=== PATIENT | female | born 1955 | race Caucasian/White ===

== ENCOUNTER 2019-02-04 06:42 | Inpatient (IN) ==
--- NOTE | 2019-02-04 06:57 | Emergency Department Note ---
Disposition Clinical Impression: Abnormal MRI Low back pain Qualifiers: Chronicity: acute Back pain laterality: midline Sciatica presence: without sciatica Qualified Code(s): M54.5 - Low back pain Disposition: Admitted As Inpatient Condition: Undetermined Referrals: Jarret Whitehead MD [Primary Care Provider] - Time of Disposition: 15:34 Abdominal Pain HPI - General Stated Complaint: low back pain/abdominal pain Time Seen by Provider: 02/04/19 06:47 Source: patient, family Mode of arrival: private vehicle Limitations: no limitations Nursing Notes Reviewed: Yes Vital Signs Reviewed: Yes - History of Present Illness HPI Narrative: Patient to ED with for evaluation of low back pain and abdominal pain 4 days. No trauma or heavy lifting, no history of back surgery or procedure. She has had back pain in the past but not like this. She describes it as much more intense and in the middle of her back as opposed to in the muscles. It is worse with movement. Nothing makes it better and it does not radiate. She denies paresthesias or weakness in extremities, loss of bowel or bladder control, dysuria, hematuria, increased urinary frequency or urgency, diarrhea, constipation or vomiting. She has had some nausea. The abdominal pain is di ffuse, nonradiating, intermittent and cramping, moderate in intensity. Nothing makes it better or worse. Pt Subjective Complaint: abdominal pain, other (back pain) Onset (ago): day(s) (4) Treatments prior to arrival: none - Related Data Home Medications Medication Instructions Recorded Confirmed Alprazolam 2.5 mg PO DAILY 03/20/15 02/04/19 BuPROPion 2.5 mg PO DAILY 03/20/15 02/04/19 ClonazePAM 1 each PO DAILY 03/20/15 02/04/19 Evista 60 mg PO DAILY 03/20/15 02/04/19 Lipitor 1 each PO DAILY 03/20/15 02/04/19 Nasal [place] 1 each IN DAILY 03/20/15 02/04/19 Omeprazole 1 each PO DAILY 03/20/15 02/04/19 Sertraline 2.5 mg PO DAILY 03/20/15 02/04/19 Synthroid 25 mg PO DAILY 03/20/15 02/04/19 Budesonide/Formoterol 80/4.5 0 gm IH BIDR 02/04/19 02/04/19 [Symbicort 80/4.5] Previous Rx's Medication Instructions Recorded Guaifenesin [Guaifenesin ER] 600 mg PO BID PRN #20 tab 08/28/17 Allergies Allergy/AdvReac Type Severity Reaction Status Date / Time acetaminophen Allergy See Verified 02/04/19 08:58 [From Tylenol-Codeine] Comments codeine Allergy See Verified 02/04/19 08:58 [From Tylenol-Codeine] Comments Cortisone Allergy See Verified 02/04/19 08:58 Comments NSAIDS (Non-Steroidal Allergy See Verified 02/04/19 08:58 Anti-Inflamma Comments olanzapine [From Zyprexa] Allergy See Verified 02/04/19 08:58 Comments prednisone Allergy See Verified 02/04/19 08:58 Comments Sulfa (Sulfonamide Allergy See Verified 02/04/19 08:58 Antibiotics) Comments tetracycline [Tetracycline] Allergy See Verified 02/04/19 08:58 Comments Zolpidem [From Ambien] AdvReac See Verified 02/04/19 08:58 Comments All systems ED: reviewed and negative except as stated. Review of Systems: As Per HPI Constitutional: Reports: chills. Denies: fever, weakness Eyes: Denies: eye pain, eye discharge, vision change ENT ED: Denies: ear pain, throat pain, congestion, dysphagia Cardiovascular: Denies: chest pain, palpitations, dyspnea on exertion Respiratory: Denies: cough, dyspnea, wheezes Gastrointestinal: Reports: as per HPI, abdominal pain, nausea. Denies: vomiting, diarrhea, constipation, hematemesis, melena, hematochezia Genitourinary: Denies: urgency, dysuria, frequency, hematuria, discharge Musculoskeletal: Reports: as per HPI, back pain. Denies: neck pain, joint swelling, arthralgia, myalgia Integumentary: Denies: rash, lesions, pruritus Neurological: Denies: headache, weakness, numbness, paresthesias, confusion, abnormal gait, vertigo Hematological/Lymphatic: Denies: easy bleeding, easy bruising, lymphadenopathy Allergic/Immunologic: Denies: facial swelling Abdominal Pain PMH - Past Medical History Medical history: Reports: arthritis, cancer, COPD, coronary artery disease, GERD, hyperlipidemia, hypertension, renal disease, thyroid disease, other Female Surgical History: Reports: appendectomy, , cholecystectomy, hysterectomy [employer] history: Reports: endometriosis Psychiatric history: Reports: anxiety, depression - Social History Smoking status: Never smoker Alcohol use: Reports: none Drug use: Reports: none Physical Exam - General Limitations: no limitations General appearance: alert, in no apparent distress - Head Head exam: atraumatic, normocephalic, normal inspection - Eye Eye exam: Present: normal appearance. Absent: scleral icterus, conjunctival injection, periorbital swelling - ENT ENT exam: normal oropharynx, mucous membranes moist - Neck Neck exam: Present: normal inspection, full ROM, trachea midline. Absent: meningismus - Respiratory Respiratory exam: Present: normal lung sounds bilaterally. Absent: respiratory distress, wheezes, stridor - Cardiovascular Cardiovascular exam: Present: regular rate, normal rhythm, normal heart sounds - Abdominal Exam Abdominal exam: Present: soft, tenderness, normal bowel sounds. Absent: distention, guarding, rebound, rigidity, organomegaly, trauma, Chavez's sign, ascites, mass, pulsatile mass - Extremities Exam Extremities exam: Present: normal inspection, full ROM, normal capillary refill. Absent: pedal edema, calf tenderness - Back Exam Back exam: Present: normal inspection, tenderness, paraspinal tenderness, tristin tebral tenderness. Absent: full ROM, CVA tenderness (R), CVA tenderness (L), muscle spasm, rashes, sciatic notch tenderness (R), sciatic notch tenderness (L) - Neurological Exam Neurological exam: Present: alert, oriented X3, CN II-XII intact, reflexes normal. Absent: motor sensory deficit - Psychiatric Psychiatric exam: Present: normal affect, normal mood - Skin Skin exam: Present: warm, dry, intact, normal color Course Course Narrative: Patient examined, IV access obtained, labs and meds ordered. Case discussed with Dr. Krueger. He has had [id number] time with the patient and agrees with the assessment and plan. CT abdomen and pelvis has been ordered. Patient's labs are essentially unremarkable. Pain is significantly improved after [address] of the abdomen and pelvis was read by the radiologist as abnormal injection of the fat adjacent to the L2-L3 vertebrae and disc space in the retroperitoneum. MRI recommended. MRI read by the radiologist as findings concerning for atypical spine infection, possibly including tuberculosis spondylitis. Case discussed with the hospitalist. He recommends holding the antibiotics for now. Patient has been accepted for admission. - Consultations Consultation #1: Case discussed with Dr. Steel. He states that this could represent discitis, although with no fever or leukocytosis, it would be less likely. MRI would further differentiate this. Time: 09:20 Consultation #2: Dr. Alcantar consulted again. He recommends consulting Infectious Disease and working patient up for TB. This was discussed with Dr. Krueger who recommends broad spectrum ABX and admission. Time: 15:06 Vital Signs Temperature 98.2 F 02/04/19 07:19 Pulse Rate 57 02/04/19 07:19 Respiratory Rate 16 02/04/19 07:19 Blood Pressure 100/70 02/04/19 07:19 O2 Sat by Pulse Oximetry 94 02/04/19 07:19 Temperature 98.2 F 02/04/19 07:19 Pulse Rate 64 02/04/19 14:15 Respiratory Rate 16 02/04/19 14:15 Blood Pressure 111/71 02/04/19 14:15 O2 Sat by Pulse Oximetry 96 02/04/19 14:15 Oxygen Delivery Oxygen Delivery Room Air Abdominal Pain - Medical Records Medical records reviewed: Yes I reviewed the patient's medical records. - Lab Data Lab results reviewed: Yes I reviewed the patient's lab results. Lab results narrative: Laboratory Last Values WBC 6.6 K/mcL (4.3-11.1) 02/04/19 07:40 RBC 4.10 M/mcL (3.82-4.97) 02/04/19 07:40 Hgb 11.9 g/dL (11.5-15.4) 02/04/19 07:40 Hct 35.9 % (35.3-44.9) 02/04/19 07:40 MCV 87.6 fL (83.0-100.0) 02/04/19 07:40 MCH 29.0 pg (28.0-33.3) 02/04/19 07:40 MCHC 33.1 g/dL (31.6-35.5) 02/04/19 07:40 RDW 12.4 % (11.5-14.5) 02/04/19 07:40 Plt Count 213 K/mcL (140-400) 02/04/19 07:40 MPV 10.1 fL (9.4-12.4) 02/04/19 07:40 Immature Gran % 0.3 % (0-4) 02/04/19 07:40 Seg Neutrophils % 56.1 % 02/04/19 07:40 Lymphocytes % 30.7 % 02/04/19 07:40 Monocytes % 9.1 % 02/04/19 07:40 Eosinophils % 3.3 % 02/04/19 07:40 Basophils % 0.5 % 02/04/19 07:40 Neutrophils # 3.7 K/mcL (1.6-8.9) 02/04/19 07:40 Lymphocytes # 2.0 K/mcL (0.6-4.6) 02/04/19 07:40 Monocytes # 0.6 K/mcL (0.0-1.3) 02/04/19 07:40 Eosinophils # 0.2 K/mcL (0.0-0.6) 02/04/19 07:40 Basophils # 0.0 K/mcL (0.0-0.2) 02/04/19 07:40 Sodium 141 mEq/L (136-145) 02/04/19 07:40 Potassium 3.6 mEq/L (3.5-5.1) 02/04/19 07:40 Chloride 104 mEq/L (98-107) 02/04/19 07:40 Carbon Dioxide 28 mEq/L (23-29) 02/04/19 07:40 BUN 9 mg/dL (8-23) 02/04/19 07:40 Creatinine 0.96 mg/dL (0.60-1.20) 02/04/19 07:40 Est GFR ( Amer) > 60 (> 60) 02/04/19 07:40 Est GFR (Non-Af Amer) 58 (> 60) L 02/04/19 07:40 BUN/Creatinine Ratio 9 (6-26) 02/04/19 07:40 Glucose 130 mg/dL (70-105) H 02/04/19 07:40 Calculated Osmolality 292 (280-300) 02/04/19 07:40 Lactic Acid 0.5 mmol/L (0.5-2.2) 02/04/19 08:53 Calcium 8.9 mg/dL (8.6-10.3) 02/04/19 07:40 Total Bilirubin 0.2 mg/dL (0.3-1.0) L 02/04/19 07:40 Direct Bilirubin 0.1 mg/dL (0.0-0.2) 02/04/19 07:40 Indirect Bilirubin 0.1 mg/dL (0.0-1.2) 02/04/19 07:40 AST 19 Units/L (13-39) 02/04/19 07:40 ALT 14 Units/L (7-52) 02/04/19 07:40 Alkaline Phosphatase 40 Units/L (34-104) 02/04/19 07:40 Serum Total Protein 6.6 g/dL (6.4-8.9) 02/04/19 07:40 Albumin 3.8 g/dL (3.5-5.7) 02/04/19 07:40 Globulin 2.8 g/dL (2.4-3.5) 02/04/19 07:40 Albumin/Globulin Ratio 1.4 (1.1-2.2) 02/04/19 07:40 Lipase 43 Units/L (11-82) 02/04/19 07:40 Urine Color Yellow (Yellow) 02/04/19 07:47 Urine Clarity Clear (Clear) 02/04/19 07:47 Urine pH 6.0 pH Units (5.0-8.0) 02/04/19 07:47 Ur Specific [place] 1.008 (1.010-1.025) L 02/04/19 07:47 Urine Protein Negative mg/dL (Neg-Trace) 02/04/19 07:47 Urine Glucose (UA) Normal mg/dL (Normal) 02/04/19 07:47 Urine Ketones Negative mg/dL (Negative) 02/04/19 07:47 Urine Blood Negative (Negative) 02/04/19 07:47 Urine Nitrite Negative (Negative) 02/04/19 07:47 Urine Bilirubin Negative (Negative) 02/04/19 07:47 Urine Urobilinogen Normal mg/dL (Normal) 02/04/19 07:47 Ur Leukocyte Esterase Large (Negative) H 02/04/19 07:47 Urine Microscopic RBC 0-3 per hpf (0-3) 02/04/19 07:47 Urine Microscopic WBC 15-30 per hpf (0-3) H 02/04/19 07:47 Ur Squamous Epith Cells Many per lpf (None-Few) H 02/04/19 07:47 Urine Bacteria None Seen per hpf (None-Few) 02/04/19 07:47 Hyaline Casts None Seen per lpf (None-Few) 02/04/19 07:47 Ur Culture Indicated? YES (NO) A 02/04/19 07:47 Result diagrams: 02/04/19 07:40 02/04/19 07:40 Lab Results 02/04/19 02/04/19 02/04/19 Range/Units 07:40 07:40 07:47 WBC 6.6 (4.3-11.1) K/mcL RBC 4.10 (3.82-4.97) M/mcL Hgb 11.9 (11.5-15.4) g/dL Hct 35.9 (35.3-44.9) % MCV 87.6 (83.0-100.0) fL MCH 29.0 (28.0-33.3) pg MCHC 33.1 (31.6-35.5) g/dL RDW 12.4 (11.5-14.5) % Plt Count 213 (140-400) K/mcL MPV 10.1 (9.4-12.4) fL Immature Gran % 0.3 (0-4) % Seg Neutrophils % 56.1 % Lymphocytes % 30.7 % Monocytes % 9.1 % Eosinophils % 3.3 % Basophils % 0.5 % Neutrophils # 3.7 (1.6-8.9) K/mcL Lymphocytes # 2.0 (0.6-4.6) K/mcL Monocytes # 0.6 (0.0-1.3) K/mcL Eosinophils # 0.2 (0.0-0.6) K/mcL Basophils # 0.0 (0.0-0.2) K/mcL Sodium 141 (136-145) mEq/L Potassium 3.6 (3.5-5.1) mEq/L Chloride 104 (98-107) mEq/L Carbon Dioxide 28 (23-29) mEq/L BUN 9 (8-23) mg/dL Creatinine 0.96 (0.60-1.20) mg/dL Est GFR ( Amer) > 60 (> 60) Est GFR (Non-Af Amer) 58 L (> 60) BUN/Creatinine Ratio 9 (6-26) Glucose 130 H (70-105) mg/dL Calculated Osmolality 292 (280-300) Lactic Acid (0.5-2.2) mmol/L Calcium 8.9 (8.6-10.3) mg/dL Total Bilirubin 0.2 L (0.3-1.0) mg/dL Direct Bilirubin 0.1 (0.0-0.2) mg/dL Indirect Bilirubin 0.1 (0.0-1.2) mg/dL AST 19 (13-39) Units/L ALT 14 (7-52) Units/L Alkaline Phosphatase 40 (34-104) Units/L Serum Total Protein 6.6 (6.4-8.9) g/dL Albumin 3.8 (3.5-5.7) g/dL Globulin 2.8 (2.4-3.5) g/dL Albumin/Globulin Ratio 1.4 (1.1-2.2) Lipase 43 (11-82) Units/L Urine Color Yellow (Yellow) Urine Clarity Clear (Clear) Urine pH 6.0 (5.0-8.0) pH Units Ur Specific [place] 1.008 L (1.010-1.025) Urine Protein Negative (Neg-Trace) mg/dL Urine Glucose (UA) Normal (Normal) mg/dL Urine Ketones Negative (Negative) mg/dL Urine Blood Negative (Negative) Urine Nitrite Negative (Negative) Urine Bilirubin Negative (Negative) Urine Urobilinogen Normal (Normal) mg/dL Ur Leukocyte Esterase Large H (Negative) Urine Microscopic RBC 0-3 (0-3) per hpf Urine Microscopic WBC 15-30 H (0-3) per hpf Ur Squamous Epith Cells Many H (None-Few) per lpf Urine Bacteria None Seen (None-Few) per hpf Hyaline Casts None Seen (None-Few) per lpf Ur Culture Indicated? YES A (NO) 02/04/19 Range/Units 08:53 WBC (4.3-11.1) K/mcL RBC (3.82-4.97) M/mcL Hgb (11.5-15.4) g/dL Hct (35.3-44.9) % MCV (83.0-100.0) fL MCH (28.0-33.3) pg MCHC (31.6-35.5) g/dL RDW (11.5-14.5) % Plt Count (140-400) K/mcL MPV (9.4-12.4) fL Immature Gran % (0-4) % Seg Neutrophils % % Lymphocytes % % Monocytes % % Eosinophils % % Basophils % % Neutrophils # (1.6-8.9) K/mcL Lymphocytes # (0.6-4.6) K/mcL Monocytes # (0.0-1.3) K/mcL Eosinophils # (0.0-0.6) K/mcL Basophils # (0.0-0.2) K/mcL Sodium (136-145) mEq/L Potassium (3.5-5.1) mEq/L Chloride (98-107) mEq/L Carbon Dioxide (23-29) mEq/L BUN (8-23) mg/dL Creatinine (0.60-1.20) mg/dL Est GFR ( Amer) (> 60) Est GFR (Non-Af Amer) (> 60) BUN/Creatinine Ratio (6-26) Glucose (70-105) mg/dL Calculated Osmolality (280-300) Lactic Acid 0.5 (0.5-2.2) mmol/L Calcium (8.6-10.3) mg/dL Total Bilirubin (0.3-1.0) mg/dL Direct Bilirubin (0.0-0.2) mg/dL Indirect Bilirubin (0.0-1.2) mg/dL AST (13-39) Units/L ALT (7-52) Units/L Alkaline Phosphatase (34-104) Units/L Serum Total Protein (6.4-8.9) g/dL Albumin (3.5-5.7) g/dL Globulin (2.4-3.5) g/dL Albumin/Globulin Ratio (1.1-2.2) Lipase (11-82) Units/L Urine Color (Yellow) Urine Clarity (Clear) Urine pH (5.0-8.0) pH Units Ur Specific [place] (1.010-1.025) Urine Protein (Neg-Trace) mg/dL Urine Glucose (UA) (Normal) mg/dL Urine Ketones (Negative) mg/dL Urine Blood (Negative) Urine Nitrite (Negative) Urine Bilirubin (Negative) Urine Urobilinogen (Normal) mg/dL Ur Leukocyte Esterase (Negative) Urine Microscopic RBC (0-3) per hpf Urine Microscopic WBC (0-3) per hpf Ur Squamous Epith Cells (None-Few) per lpf Urine Bacteria (None-Few) per hpf Hyaline Casts (None-Few) per lpf Ur Culture Indicated? (NO) - Radiology Data Radiology results reviewed: Yes I reviewed the patient's radiology results. Laboratory Last Values WBC 6.6 K/mcL (4.3-11.1) 02/04/19 07:40 RBC 4.10 M/mcL (3.82-4.97) 02/04/19 07:40 Hgb 11.9 g/dL (11.5-15.4) 02/04/19 07:40 Hct 35.9 % (35.3-44.9) 02/04/19 07:40 MCV 87.6 fL (83.0-100.0) 02/04/19 07:40 MCH 29.0 pg (28.0-33.3) 02/04/19 07:40 MCHC 33.1 g/dL (31.6-35.5) 02/04/19 07:40 RDW 12.4 % (11.5-14.5) 02/04/19 07:40 Plt Count 213 K/mcL (140-400) 02/04/19 07:40 MPV 10.1 fL (9.4-12.4) 02/04/19 07:40 Immature Gran % 0.3 % (0-4) 02/04/19 07:40 Seg Neutrophils % 56.1 % 02/04/19 07:40 Lymphocytes % 30.7 % 02/04/19 07:40 Monocytes % 9.1 % 02/04/19 07:40 Eosinophils % 3.3 % 02/04/19 07:40 Basophils % 0.5 % 02/04/19 07:40 Neutrophils # 3.7 K/mcL (1.6-8.9) 02/04/19 07:40 Lymphocytes # 2.0 K/mcL (0.6-4.6) 02/04/19 07:40 Monocytes # 0.6 K/mcL (0.0-1.3) 02/04/19 07:40 Eosinophils # 0.2 K/mcL (0.0-0.6) 02/04/19 07:40 Basophils # 0.0 K/mcL (0.0-0.2) 02/04/19 07:40 Sodium 141 mEq/L (136-145) 02/04/19 07:40 Potassium 3.6 mEq/L (3.5-5.1) 02/04/19 07:40 Chloride 104 mEq/L (98-107) 02/04/19 07:40 Carbon Dioxide 28 mEq/L (23-29) 02/04/19 07:40 BUN 9 mg/dL (8-23) 02/04/19 07:40 Creatinine 0.96 mg/dL (0.60-1.20) 02/04/19 07:40 Est GFR ( Amer) > 60 (> 60) 02/04/19 07:40 Est GFR (Non-Af Amer) 58 (> 60) L 02/04/19 07:40 BUN/Creatinine Ratio 9 (6-26) 02/04/19 07:40 Glucose 130 mg/dL (70-105) H 02/04/19 07:40 Calculated Osmolality 292 (280-300) 02/04/19 07:40 Lactic Acid 0.5 mmol/L (0.5-2.2) 02/04/19 08:53 Calcium 8.9 mg/dL (8.6-10.3) 02/04/19 07:40 Total Bilirubin 0.2 mg/dL (0.3-1.0) L 02/04/19 07:40 Direct Bilirubin 0.1 mg/dL (0.0-0.2) 02/04/19 07:40 Indirect Bilirubin 0.1 mg/dL (0.0-1.2) 02/04/19 07:40 AST 19 Units/L (13-39) 02/04/19 07:40 ALT 14 Units/L (7-52) 02/04/19 07:40 Alkaline Phosphatase 40 Units/L (34-104) 02/04/19 07:40 Serum Total Protein 6.6 g/dL (6.4-8.9) 02/04/19 07:40 Albumin 3.8 g/dL (3.5-5.7) 02/04/19 07:40 Globulin 2.8 g/dL (2.4-3.5) 02/04/19 07:40 Albumin/Globulin Ratio 1.4 (1.1-2.2) 02/04/19 07:40 Lipase 43 Units/L (11-82) 02/04/19 07:40 Urine Color Yellow (Yellow) 02/04/19 07:47 Urine Clarity Clear (Clear) 02/04/19 07:47 Urine pH 6.0 pH Units (5.0-8.0) 02/04/19 07:47 Ur Specific [place] 1.008 (1.010-1.025) L 02/04/19 07:47 Urine Protein Negative mg/dL (Neg-Trace) 02/04/19 07:47 Urine Glucose (UA) Normal mg/dL (Normal) 02/04/19 07:47 Urine Ketones Negative mg/dL (Negative) 02/04/19 07:47 Urine Blood Negative (Negative) 02/04/19 07:47 Urine Nitrite Negative (Negative) 02/04/19 07:47 Urine Bilirubin Negative (Negative) 02/04/19 07:47 Urine Urobilinogen Normal mg/dL (Normal) 02/04/19 07:47 Ur Leukocyte Esterase Large (Negative) H 02/04/19 07:47 Urine Microscopic RBC 0-3 per hpf (0-3) 02/04/19 07:47 Urine Microscopic WBC 15-30 per hpf (0-3) H 02/04/19 07:47 Ur Squamous Epith Cells Many per lpf (None-Few) H 02/04/19 07:47 Urine Bacteria None Seen per hpf (None-Few) 02/04/19 07:47 Hyaline Casts None Seen per lpf (None-Few) 02/04/19 07:47 Ur Culture Indicated? YES (NO) A 02/04/19 07:47 Attestation Statement - Attestation Attestation: Dr. Krueger note: Patient seen in conjunction with emergency medicine physician reading assistant Shaniqua Dean. Please see her charting for complete documentation. Assessment [id number] time with the patient and I agree with patient's treatment and disposition. Vague low back pain progressed to abdominal pain over the last 4 days without injury. No acute lower extremity weakness. CT scan and MRI abnormalities is noted. Possible infectious cause although there is no fever or white count. Will be admitted on antibiotics and further evaluation will be clinically determined by in patient and reimbursement consultant if further continued antibiotics or any surgical intervention would be necessary. Patient has no acute neurologic findings and stable vital signs with improved condition upon admission.
[2019-02-04] MEDS ORDERED: Ondansetron 4 MG/2 ML VIAL IVP ONE (07:02)
[2019-02-04] MEDS ORDERED: *HR* HYDROmorphone (PF) 1 MG/ML SYRINGE IVP ONE (07:02)
[2019-02-04] MEDS ORDERED: 0.9 % Sodium Chloride 1,000 ML IVC ONE (07:02)
[2019-02-04] MEDS ORDERED: *HR* FentaNYL (PF) 100 MCG/2 ML VIAL IVP ONE ×2 (07:53→14:53)
[2019-02-04 07:56] LABS: Basophils % 0.5 %; Eosinophils # 0.2 K/mcL (0.0-0.6); Eosinophils % 3.3 %; Hematocrit 35.9 % (35.3-44.9); Hemoglobin 11.9 g/dL (11.5-15.4); Immature Granulocytes % 0.3 % (0-4); Lymphocytes % 30.7 %; Mean Corpuscular HGB Conc 33.1 g/dL (31.6-35.5); Mean Corpuscular Volume 87.6 fL (83.0-100.0); Mean Platelet Volume 10.1 fL (9.4-12.4); Monocytes # 0.6 K/mcL (0.0-1.3); Monocytes % 9.1 %; Neutrophils # 3.7 K/mcL (1.6-8.9); Platelet Count 213 K/mcL (140-400); Red Cell Distribution Width 12.4 % (11.5-14.5); Segmented Neutrophils % 56.1 %; White Blood Count 6.6 K/mcL (4.3-11.1)
[2019-02-04 07:59] LABS: Bilirubin,Urine Negative (Negative); Blood,Urine Negative (Negative); Clarity,Urine Clear (Clear); Color,Urine Yellow (Yellow); Glucose,Urine (UA) Normal (Normal); Ketones,Urine Negative (Negative); Leukocyte Esterase,Urine Large (Negative); Nitrite,Urine Negative (Negative); Protein,Urine Negative (Neg-Trace); Specific Gravity,Urine 1.008 (1.010-1.025); Urobilinogen,Urine Normal (Normal)
[2019-02-04 08:00] LABS: Bacteria,Urine None Seen per hpf (None-Few); Hyaline Casts,Urine None Seen per lpf (None-Few); RBC,Urine 0-3 per hpf (0-3); Squamous Epithelial Cell,Urine Many per lpf (None-Few); WBC,Urine 15-30 per hpf (0-3)
[2019-02-04 08:14] LABS: Alanine Aminotransferase 14 Units/L (7-52); Albumin 3.8 g/dL (3.5-5.7); Albumin/Globulin Ratio 1.4 (1.1-2.2); Alkaline Phosphatase 40 Units/L (34-104); Aspartate Amino Transferase 19 Units/L (13-39); BUN/Creatinine Ratio 9 (6-26); Bilirubin,Direct 0.1 mg/dL (0.0-0.2); Bilirubin,Indirect 0.1 mg/dL (0.0-1.2); Bilirubin,Total 0.2 mg/dL (0.3-1.0); Blood Urea Nitrogen 9 mg/dL (8-23); Calcium 8.9 mg/dL (8.6-10.3); Carbon Dioxide 28 mEq/L (23-29); Chloride 104 mEq/L (98-107); Globulin 2.8 g/dL (2.4-3.5); Glucose 130 mg/dL (70-105); Lipase 43 Units/L (11-82); Osmolality,Calculated 292 (280-300); Potassium 3.6 mEq/L (3.5-5.1); Sodium 141 mEq/L (136-145); Total Protein 6.6 g/dL (6.4-8.9); eGFR For African Americans > 60 (> 60); eGFR For Non-African Americans 58 (> 60)
[2019-02-04] MEDS ORDERED: Gadolinium Contrast Agent (WT Based) IV PRN (09:20)
[2019-02-04] MEDS ORDERED: Acetaminophen 325 MG TABLET PO PRN (16:29)
[2019-02-04] MEDS ORDERED: Naloxone 0.4 MG/ML INJ IVP PRN (16:29)
--- NOTE | 2019-02-04 16:54 | Internal Med History&Physical ---
Date of Encounter: 02/04/19 Time of Encounter: 16:52 Internal Medicine - H&P: HPI Chief complaint: Back pain Admitted From: Emergency Dept Plans for Post Hospital Care: Home History of present illness: Ms. Forbes is a 63 year old female with history of hypothyroidism, GERD, depression, arthritis who presents with low back pain that has worsened for the last 4-5 days and his present her from proper sleep. She says it is worse when she bends forward. She has had chronic back pain for many years which has limited her ability she walks with a limp. She also has had bilateral hip pain for many years. She denies any numbness or tingling. No urinary or bowel incontinence. When she came to the ED she had a laboratory workup that was mostly unremarkable. Was noted to have glucose of 130. She had a CT of the ab domen and pelvis that showed an abnormal ejection anterior to the L2 vertebral body extending to the L2-L3 disc space. An MRI was recommended which was done and showed similar findings. There is edema/enhancement noted. There was a mention of possible atypical spine infection, such as tuberculosis spondylitis. Dr. Steel was contacted and recommended admission and consult ID as well. She has not had any recent sickness or travel. No risk factors for TB. Patient denies any fever, chills, recent travel, headache, nausea, vomiting, chest pain, shortness breath, abdominal pain, diarrhea, constipation, urinary symptoms, or neurological symptoms. Past Med Surg Social Fam HX - Past Medical History Medical history: arthritis, cancer, COPD, coronary artery disease, fibromyalgia, GERD, hyperlipidemia, hypertension, renal disease, thyroid disease, other Additional medical history: sleep apnea - restless leg syndrome - vit D Deficiency Psychiatric history: anxiety, depression - Past Surgical History Surgical History: appendectomy, cholecystectomy, hysterectomy Additional surgical history: colonoscopy - back surgery - left hand surgery - bilateral CTR - bilateral Knee surgery - Social History Smoking Status: Never smoker Smokeless Tobacco Status: No Alcohol use: none Drug use: none Internal Medicine - H&P: Meds Alprazolam 2.5 mg PO DAILY 03/20/15 [History] BuPROPion 2.5 mg PO DAILY 03/20/15 [History] ClonazePAM 1 each PO DAILY 03/20/15 [History] Evista 60 mg PO DAILY 03/20/15 [History] Lipitor 1 each PO DAILY 03/20/15 [History] Nasal Warden 1 each IN DAILY 03/20/15 [History] Omeprazole 1 each PO DAILY 03/20/15 [History] Sertraline 2.5 mg PO DAILY 03/20/15 [History] Synthroid 25 mg PO DAILY 03/20/15 [History] Guaifenesin [Guaifenesin ER] 600 mg PO BID PRN #20 tab 08/28/17 [Rx] Budesonide/Formoterol 80/4.5 [Symbicort 80/4.5] 0 gm IH BIDR 02/04/19 [History] Allergy/AdvReac Type Severity Reaction Status Date / Time acetaminophen Allergy See Verified 02/04/19 08:58 [From Tylenol-Codeine] Comments codeine Allergy See Verified 02/04/19 08:58 [From Tylenol-Codeine] Comments Cortisone Allergy See Verified 02/04/19 08:58 Comments NSAIDS (Non-Steroidal Allergy See Verified 02/04/19 08:58 Anti-Inflamma Comments olanzapine [From Zyprexa] Allergy See Verified 02/04/19 08:58 Comments prednisone Allergy See Verified 02/04/19 08:58 Comments Sulfa (Sulfonamide Allergy See Verified 02/04/19 08:58 Antibiotics) Comments tetracycline [Tetracycline] Allergy See Verified 02/04/19 08:58 Comments Zolpidem [From Ambien] AdvReac See Verified 02/04/19 08:58 Comments All Systems PM: A 10-system review of systems was performed and is negative for pertinent findings except as documented above in the HPI. Review of systems: All systems reviewed are negative except for as mentioned above - Constitutional Vitals: Temp Pulse Resp BP Pulse Ox 98.2 F 60 16 99/57 95 02/04/19 07:19 02/04/19 16:02 02/04/19 14:55 02/04/19 16:02 02/04/19 16:02 Exam: GEN: NAD HEENT: AT, NC, No cyanosis, oral mucosa is moist, No JVD Lymphatics: No lymphadenoapthy Eyes: Extrocular muscles intact, anicteric CVS:RRR. S1, S2, No m/r/g RESP: CTAB ABD: Soft, NT, ND, +BS EXT: No edema, No rashes, 2+ DP. Lower back tenderness with no deformities. NEURO: Nonfocal, CN II-XII intact, No focal motor or sensory deficits Psych: Cooperative, Not anxious or depressed Internal Med - H&P Results - Labs CBC & Chem 7: 02/04/19 07:40 02/04/19 07:40 Labs: Short CBC 02/04/19 Range/Units 07:40 WBC 6.6 (4.3-11.1) K/mcL Hgb 11.9 (11.5-15.4) g/dL Hct 35.9 (35.3-44.9) % Plt Count 213 (140-400) K/mcL Neutrophils # 3.7 (1.6-8.9) K/mcL BMP 02/04/19 07:40 Sodium 141 Potassium 3.6 Chloride 104 Carbon Dioxide 28 BUN 9 Creatinine 0.96 Glucose 130 H Calcium 8.9 Liver Function 02/04/19 Range/Units 07:40 Total Bilirubin 0.2 L (0.3-1.0) mg/dL Direct Bilirubin 0.1 (0.0-0.2) mg/dL AST 19 (13-39) Units/L ALT 14 (7-52) Units/L Alkaline Phosphatase 40 (34-104) Units/L Albumin 3.8 (3.5-5.7) g/dL Urine 02/04/19 Range/Units 07:47 Urine Color Yellow (Yellow) Urine Clarity Clear (Clear) Urine pH 6.0 (5.0-8.0) pH Units Ur Specific [place] 1.008 L (1.010-1.025) Urine Protein Negative (Neg-Trace) mg/dL Urine Glucose (UA) Normal (Normal) mg/dL - Impressions ITS Impressions Abdomen/Pelvis CT 02/04/19 07:04 IMPRESSION: Abnormal injection of the fat the retroperitoneum anterior to the L2 vertebral body, extending to the L2-L3 disc space. This could conceivably be the cause of the patient's pain. Exact cause is uncertain. It may relate to an early finding of retroperitoneal fibrosis. Infectious-inflammatory change could also have this appearance. It could be reactive and related to disc disease. Consider lumbar spine MRI with and without IV contrast for further characterization No stones or hydronephrosis. D/ / Sky Carter MD / Sky Carter MD Interpreting Provider: Sky Carter MD Lumbar Spine MRI 02/04/19 09:20 IMPRESSION: Abnormal enhancement of the anterior longitudinal ligament, most pronounced at the L3 vertebral body level. Additional anterior perivertebral edema/enhancement is noted. These findings may sub ligamentous spread of an atypical spine infection, such as tuberculosis spondylitis. There is no imaging finding to suggest discitis or osteomyelitis at this time. No evidence of an abscess. RECOMMENDATIONS: Consider short interval follow-up imaging. D/ / Farooq Castorena MD / Farooq Castorena MD Interpreting Provider: Farooq Castorena MD - Assessment and Plan (1) Low back pain Current Visit: Yes Status: Acute Assessment and plan: Admit for pain control. Consult Dr. Steel and consult infectious disease. Possible discitis. There was a mention of possible atypical spine infection such as tuberculosis spondylitis. No risk factors for TB. IV vancomycin/zosyn for now. f/u on blood cultures. Check ESR/CRP Qualifiers: Chronicity: acute Back pain laterality: midline Sciatica presence: without sciatica Qualified Code(s): M54.5 - Low back pain (2) Abnormal MRI Current Visit: Yes Status: Acute Assessment and plan: As above (3) Hypothyroidism Current Visit: Yes Status: Acute Assessment and plan: c/w home meds Qualifiers: Hypothyroidism type: unspecified Qualified Code(s): E03.9 - Hypothyroidism, unspecified (4) Depression Current Visit: Yes Status: Acute Assessment and plan: c/w home meds Qualifiers: Depression Type: unspecified Qualified Code(s): F32.9 - Major depressive disorder, single episode, unspecified (5) GERD (gastroesophageal reflux disease) Current Visit: Yes Status: Acute Assessment and plan: c/w home PPI Qualifiers: Esophagitis presence: without esophagitis Qualified Code(s): K21.9 - Gastro-esophageal reflux disease without esophagitis (6) HLD (hyperlipidemia) Current Visit: Yes Status: Acute Assessment and plan: c/w home Lipitor Qualifiers: Hyperlipidemia type: unspecified Qualified Code(s): E78.5 - Hyperlipidemia, unspecified (7) DVT prophylaxis Current Visit: Yes Status: Acute Assessment and plan: heparin SQ - Time Spent With Patient Total time spent is greater than 50% in coordination of care (as documented) at patient's floor/unit and/or counseling patient:
[2019-02-04] MEDS ORDERED: Vancomycin 500 MG in 0.9 % Sodium Chloride Mini Bag 100 ML IVPB ONE (20:00)
[2019-02-04] MEDS: *HR* HYDROcodone/Acet 5/325 mg TABLET PO PRN ×2 (20:38→23:03)
[2019-02-04] MEDS: Piperacillin/Tazobactam 3.375 GM in 0.9 % Sodium Chloride Mini Bag 100 ML IVPB SCH (20:41)
[2019-02-04] MEDS: Budesonide/Formoterol 80/4.5 MDI IH SCH (21:04)
[2019-02-04] MEDS: *HR* Heparin 5,000 UNIT/ML VIAL SQ SCH (22:07)
[2019-02-04] MEDS: *HR* HYDROmorphone (PF) 1 MG/ML SYRINGE IVP PRN (22:20)
[2019-02-04] MEDS: ALPRAZolam 1 MG TABLET PO PRN (22:20)
[2019-02-05] MEDS: *HR* HYDROmorphone (PF) 1 MG/ML SYRINGE IVP PRN ×4 (03:37→22:04)
[2019-02-05] MEDS: Piperacillin/Tazobactam 3.375 GM in 0.9 % Sodium Chloride Mini Bag 100 ML IVPB SCH ×2 (03:57→11:43)
[2019-02-05] MEDS: Levothyroxine 25 MCG TABLET PO SCH (05:45)
[2019-02-05] MEDS: *HR* Heparin 5,000 UNIT/ML VIAL SQ SCH ×3 (05:45→21:49)
[2019-02-05] MEDS: *HR* HYDROcodone/Acet 5/325 mg TABLET PO PRN ×2 (07:14→14:01)
[2019-02-05] MEDS: Budesonide/Formoterol 80/4.5 MDI IH SCH ×2 (07:37→21:54)
--- NOTE | 2019-02-05 08:11 | Infectious Disease Consult ---
Infectious Disease-Consult - Encounter Date/Time Date of Encounter: 02/05/19 - Data of Consult Patient: new to practice Reason for consult: discitis. rule out tuberculous spondylitis Consult date: 02/05/19 Requesting Physician: Valery Prather MD Primary Care Provider: Jarret Whitehead MD - [facility] HPI: Ms. Forbes is a 63-year-old female with a past medical history of COPD, CAD, GERD, hyperlipidemia, hypertension, chronic kidney disease, hypothyroidism anxiety, and depression. The patient was admitted to the hospital 01/25/19 for an abnormal back MRI and low back pain. We are consulted 01/26/19 for further workup and treatment recommendations for "discitis and rule out tuberculous spondylitis." Briefly, the patient is a 63-year-old female with past medical history as stated above. The patient presented to the emergency department on the day of admission with complaints of a 4 day history of low back pain and abdominal pain. Upon arrival, the patient was afebrile hemodynamically stable. Lab workup revealed a normal white blood cell count and renal function. ESR was mildly elevated at 22 with a CRP of 9. LFTs and lipase were normal. Urinalysis was positive for 15-30 white cells and large amounts of leukocyte esterase as well as many epithelial cells. She had a CT of the abdomen and pelvis without contrast that showed abnormal injection of the fat of the retroperitoneum anterior to the L2 vertebral body extending to the L2-L3 disc space. This could conceivably be the cause of the patient's pain, but the exact cause is uncertain. It may relate to an early finding of retroperitoneal fibrosis, but infectious/inflammatory change could also have this appearance. It could be reactive related to disc disease. A lumbar spine MRI was recommended. The patient had an MRI of the lumbar spine that showed abnormal enhancement of the anterior longitudinal ligament, most pronounced at the L3 vertebral body. Additional anterior perivertebral edema/enhancement was noted. These findings may ligamentous spread of an atypical spine infection, such as tuberculosis spondylitis. There was no imaging finding to suggest discitis or osteomyelitis and no evidence of abscess. Blood cultures were obtained 2 sets are pending. Urine cultures pending as well. She was started empirically on IV antibiotics and admitted to the hospital for further evaluation. Since admission, the patient has remained afebrile and hemodynamically stable. Laboratory studies for this morning are pending. She had a chest x-ray that marva wed no acute disease. She is currently on vancomycin and Zosyn. We have been asked to evaluate and make further recommendations. During my exam today, the patient states that she started having excruciating low back pain about 4-5 days prior to admission. She states pain is in the lower part of her back and radiates to the bilateral sides and around to the front of her abdomen. She denies fevers, chills, or rigors. Reports chronic headaches that are at baseline. Denies any weakness or fatigue. Denies congestion, earache, or sore throat. Reports shortness of breath and cough that are chronic secondary to COPD and are at baseline. Denies hemoptysis, night sweats, or unintended weight loss. Denies chest pain. Denies nausea, vomiting, or constipation. She reports intermittent diarrhea because she takes laxatives and stool softeners on a daily basis. She denies dysuria, urinary frequency, or hematuria. States the abdominal pain was in the lower portion of her abdomen and radiated from the back to the abdomen. She reports the back pain is worse with movement and when she lies down for a long time. Denies any known injury or heavy lifting recently. Denies any numbness or tingling to the extremities. Denies any focal weakness. She does endorse a history of chronic bilateral hip pain that appears to be at baseline. The patient lives at home with her . She does not work outside the home. She denies tobacco, alcohol, or illicit drug use. She states she has never been in prison or residential. Denies recent travel. Has dogs and horses at home. Denies any chronic infectious diseases. - ROS Review of Systems: All systems reviewed and no additional remarkable complaints except as stated. - Results CBC & Chem 7: 02/05/19 08:08 02/05/19 08:08 - Exam Vitals: Temp Pulse Resp BP Pulse Ox 97.7 F 56 19 120/71 92 02/05/19 07:46 02/05/19 07:46 02/05/19 07:46 02/05/19 07:46 02/05/19 07:46 Exam: Head: Atraumatic, normal inspection, normocephalic. Eye: EOMI, PERRLA, no scleral icterus noted. ENT: Mucous membranes moist. No odontogenic infection noted. Neck: Normal inspection, no meningismus. Respiratory: Clear to auscultation. No rales, respiratory distress, rhonchi, or wheezes noted. Cardiovascular: Regular rate and rhythm, S1 and S2 audible. No murmurs, rubs, or gallops. GI: Soft, nondistended, normal bowel sounds. Extremities:No joint swelling, pedal edema, or tenderness noted. Back: Normal inspection. Vertebral tenderness notd in the lower spine. Paravetebral tendernes noted with palpation of the lower back. Negative SLR bilaterally. Neurological: Alert, oriented 3, no focal deficits. Strength 5/5 in all extremities. Psychiatric: normal affect, normal mood. Skin: Dry, intact, warm. Normal color. No rashes. Alprazolam [Xanax] 2 mg PO BID PRN 02/04/19 [History] Amitriptyline [Elavil] 25 mg PO HS 02/04/19 [History] Aspirin [Lo-Dose Aspirin EC] 81 mg PO DAILY 02/04/19 [History] Atorvastatin Calcium [Lipitor] 20 mg PO DAILY 02/04/19 [History] Budesonide/Formoterol 160/4.5 [Symbicort 160/4.5] 2 puff IH BID 02/04/19 [History] Bupropion HCl [Wellbutrin Xl] 300 mg PO DAILY 02/04/19 [History] Cholecalciferol (Vitamin D3) [Dialyvite Vitamin D] 5,000 unit PO DAILY 02/04/19 [History] Cyclobenzaprine [Flexeril] 10 mg PO BID PRN 02/04/19 [History] Diltiazem HCl [Cardizem LA] 180 mg PO DAILY 02/04/19 [History] Fluticasone Propionate Nasal [Flonase] 50 mcg NS DAILY PRN 02/04/19 [History] Furosemide [Lasix] 20 mg PO DAILY PRN 02/04/19 [History] Levothyroxine Sodium 25 mcg PO QAM 02/04/19 [History] Montelukast [Singulair] 10 mg PO QPM 02/04/19 [History] Omeprazole [PriLOSEC] 40 mg PO DAILY 02/04/19 [History] Polyethylene Glycol 3350 [MiraLAX] 17 gm PO QAM 02/04/19 [History] Raloxifene [Evista] 60 mg PO DAILY 02/04/19 [History] Sennosides/Docusate Sodium [Senna-S Tablet] 1 each PO HS 02/04/19 [History] Sertraline [Zoloft] 250 mg PO DAILY 02/04/19 [History] Vitamin B Complex [Balanced B-50] 1 each PO DAILY 02/04/19 [History] Allergy/AdvReac Type Severity Reaction Status Date / Time acetaminophen Allergy See Verified 02/04/19 08:58 [From Tylenol-Codeine] Comments codeine Allergy See Verified 02/04/19 08:58 [From Tylenol-Codeine] Comments Cortisone Allergy See Verified 02/04/19 08:58 Comments NSAIDS (Non-Steroidal Allergy See Verified 02/04/19 08:58 Anti-Inflamma Comments olanzapine [From Zyprexa] Allergy See Verified 02/04/19 08:58 Comments prednisone Allergy See Verified 02/04/19 08:58 Comments Sulfa (Sulfonamide Allergy See Verified 02/04/19 08:58 Antibiotics) Comments tetracycline [Tetracycline] Allergy See Verified 02/04/19 08:58 Comments Zolpidem [From Ambien] AdvReac See Verified 02/04/19 08:58 Comments - Assessment and Plan (1) Abnormal MRI Current Visit: Yes Status: Acute MRI of the lumbar spine showed abnormal enhancement of the anterior longitudinal ligament, most pronounced at the L3 vertebral body. Additional anterior perivertebral edema/enhancement is noted. Per radiology, these findings may represent ligamentous spread of an atypical spine infection, such as tuberculosis spondylitis. There was no imaging finding to suggest discitis or osteomyelitis and no evidence of abscess. Etiology of the patient's abnormality on the MRI unclear. The patient has no sepsis criteria. ESR minimally elevated with a normal CRP. Orthospine consult. Await recommendations. Currently on vancomycin and Zosyn. SNOMED Code(s): 654393387 (2) Low back pain Current Visit: Yes Status: Acute Etiology: Unclear. Await recommendations from orthospine. Qualifiers: Chronicity: acute Back pain laterality: midline Sciatica presence: without sciatica Qualified Code(s): M54.5 - Low back pain SNOMED Code(s): 897010897 (3) Hypothyroidism Current Visit: Yes Status: Chronic Qualifiers: Hypothyroidism type: unspecified Qualified Code(s): E03.9 - Hypothyroidism, unspecified SNOMED Code(s): 91612654 (4) Depression Current Visit: Yes Status: Chronic Qualifiers: Depression Type: unspecified Qualified Code(s): F32.9 - Major depressive disorder, single episode, unspecified SNOMED Code(s): 75256288 (5) GERD (gastroesophageal reflux disease) Current Visit: Yes Status: Chronic Qualifiers: Esophagitis presence: without esophagitis Qualified Code(s): K21.9 - Gastro-esophageal reflux disease without esophagitis SNOMED Code(s): 520464537 (6) HLD (hyperlipidemia) Current Visit: Yes Status: Chronic Qualifiers: Hyperlipidemia type: unspecified Qualified Code(s): E78.5 - Hyperlipidemia, unspecified SNOMED Code(s): 18129435 - Recommendations Recommendations: Check Quantiferon. Check histoplasmosis antigen. Check Aspergillus galactomannan. Check fungitell. Await recommendations from the ortho-spine team. Pain management per the primary team. Discontinue vancomycin and Zosyn. Consider additional workup and followup as an outpatient once the patient's pain is adequately controlled. Past Med Surg Social Fam HX - Past Medical History Attestation: Yes The following information was validated with the patient. Source: patient, old records reviewed, nursing notes reviewed Medical history: arthritis, cancer, COPD, coronary artery disease, fibromyalgia, GERD, hyperlipidemia, hypertension, renal disease, thyroid disease, other Additional medical history: sleep apnea - restless leg syndrome - vit D Deficiency, skin cancer Psychiatric history: anxiety, depression - Past Surgical History Surgical History: appendectomy, cholecystectomy, hysterectomy Additional surgical history: colonoscopy - back surgery - left hand surgery - bilateral CTR - bilateral Knee surgery - Social History Smoking Status: Former smoker Smokeless Tobacco Status: No Alcohol use: none Drug use: none Occupational status: unemployed Current living situation: Home, With Family Activity Level: Independent ambulation Recent Out of Country Travel Within the Last 8 Weeks: No Exposure or Possible Exposure to Illness During Travel: No Consult Discharge Plan - Plan Referrals: Jarret Whitehead MD [Primary Care Provider] - - Attending Attestation I have personally performed a face to face evaluation on this patient. I have reviewed and agree with the care plan. History and Exam by me shows: This is an addendum to original report dictated by Jennifer Alcantara CNP. Please refer to Jennifer's note for full detail. Patient is an unfortunate 63-year-old woman who is has chronic pain and was diagnosed with fibromyalgia has been followed by orthopedics for a long time for left hip pain and back pain etc. has an orthopedic and the spine surgeon up in [place] presented with back pain that she tells me is worse than usual. Apparently she does have waxing and waning pain but this is the worst ever been and she is here for pain control. was at bedside. Patient apparently had surgery after falling on hockey ring and since then she has never felt the s andree. She had hardware in her left hand. Patient never worked in the medical field never had any travel no family history with TB in the past. Patient denies any chronic infections in the past no hepatitis no HIV no TB. Patient came an MRI of the lumbar spine revealed the upper findings. We were asked to evaluate the patient and make further recommendations. On further questioning patient denies any fevers chills rigors night sweats or weight loss at home. Pain is nonradiating. He should not's complaints are somewhat ambiguous. Assessment and plan: Back pain with abnormal lumbar MRI for atypical infection pots disease? We will check fungal serology, we will check QuantiFERON, we will check cultures and inflammatory markers We will discuss with Dr. Steel Discussed at length with the patient and the and I strongly recommended they go back to [facility] where they have the spine surgeon and the orthopedic surgeon that they already know and work with. They stated that they will think about it and let us know.
[2019-02-05 08:33] LABS: Basophils % 0.7 %; Eosinophils # 0.2 K/mcL (0.0-0.6); Eosinophils % 3.3 %; Hematocrit 36.7 % (35.3-44.9); Hemoglobin 11.7 g/dL (11.5-15.4); Immature Granulocytes % 0.2 % (0-4); Lymphocytes # 1.6 K/mcL (0.6-4.6); Lymphocytes % 35.2 %; Mean Corpuscular HGB Conc 31.9 g/dL (31.6-35.5); Mean Corpuscular Hemoglobin 28.7 pg (28.0-33.3); Mean Platelet Volume 10.3 fL (9.4-12.4); Monocytes # 0.4 K/mcL (0.0-1.3); Monocytes % 9.2 %; Neutrophils # 2.3 K/mcL (1.6-8.9); Platelet Count 195 K/mcL (140-400); Red Blood Count 4.08 M/mcL (3.82-4.97); Red Cell Distribution Width 12.2 % (11.5-14.5); Segmented Neutrophils % 51.4 %; White Blood Count 4.6 K/mcL (4.3-11.1)
[2019-02-05] MEDS: BuPROPion XL (24 HR) 150 MG TABLET PO SCH (08:35)
[2019-02-05 08:38] LABS: Estimated Average Glucose 108 mg/dl
[2019-02-05 08:46] LABS: BUN/Creatinine Ratio 11 (6-26); Blood Urea Nitrogen 12 mg/dL (8-23); Calcium 8.7 mg/dL (8.6-10.3); Carbon Dioxide 31 mEq/L (23-29); Chloride 102 mEq/L (98-107); Glucose 80 mg/dL (70-105); Magnesium 1.8 mg/dL (1.6-2.6); Osmolality,Calculated 289 (280-300); Potassium 3.9 mEq/L (3.5-5.1); Sodium 140 mEq/L (136-145); eGFR For African Americans > 60 (> 60); eGFR For Non-African Americans 51 (> 60)
[2019-02-05] MEDS ORDERED: SERTRALINE PO SCH (09:00)
[2019-02-05] MEDS ORDERED: BUPROPION PO SCH (09:00)
[2019-02-05] MEDS ORDERED: ALPRAZOLAM PO SCH (09:00)
--- NOTE | 2019-02-05 09:00 | Internal Med Progress Note ---
Hospitalist Progress Note - Encounter Date of Encounter: 02/05/19 Time of Encounter: 08:59 - Subjective Interval History: Patient was seen and examined. Remains hemodynamically stable. Afebrile. Continues to complain of low back pain. - Exam Vitals: Temp Pulse Resp BP Pulse Ox 97.7 F 56 19 120/71 92 02/05/19 07:46 02/05/19 07:46 02/05/19 07:46 02/05/19 07:46 02/05/19 07:46 Exam: GEN: NAD CVS:RRR. S1, S2, No m/r/g RESP: CTAB ABD: Soft, NT, ND, +BS EXT: No edema, No rashes, 2+ DP. Lower back tenderness with no deformities. NEURO: Nonfocal, CN II-XII intact, d - Assessment and Plan (1) Low back pain Current Visit: Yes Status: Acute Assessment and Plan: New pain control. To be seen byt Dr. Steel and infectious disease. Possible discitis. There was a mention of possible atypical spine infection such as tube rculosis spondylitis. No risk factors for TB. IV vancomycin/zosyn for now. f/u on blood cultures. CRP normal. ESR mildly elevated at 22. (2) Abnormal MRI Current Visit: Yes Status: Acute Assessment and Plan: As above (3) Hypothyroidism Current Visit: Yes Status: Acute Assessment and Plan: c/w home meds (4) Depression Current Visit: Yes Status: Acute Assessment and Plan: c/w home meds (5) GERD (gastroesophageal reflux disease) Current Visit: Yes Status: Acute Assessment and Plan: c/w home PPI (6) HLD (hyperlipidemia) Current Visit: Yes Status: Acute Assessment and Plan: c/w home Lipitor (7) DVT prophylaxis Current Visit: Yes Status: Acute Assessment and Plan: heparin SQ - Time Spent with Patient Total time spent is greater than 50% in coordination of care (as documented) at patient's floor/unit and/or counseling patient: Internal Medicine: Result - Labs CBC & Chem 7: 02/05/19 08:08 02/05/19 08:08 Labs: Short CBC 02/05/19 Range/Units 08:08 WBC 4.6 (4.3-11.1) K/mcL Hgb 11.7 (11.5-15.4) g/dL Hct 36.7 (35.3-44.9) % Plt Count 195 (140-400) K/mcL Neutrophils # 2.3 (1.6-8.9) K/mcL BMP 02/05/19 08:08 Sodium 140 Potassium 3.9 Chloride 102 Carbon Dioxide 31 H BUN 12 Creatinine 1.07 Glucose 80 Calcium 8.7 - Impressions Impressions Abdomen/Pelvis CT 02/04/19 07:04 IMPRESSION: Abnormal injection of the fat the retroperitoneum anterior to the L2 vertebral body, extending to the L2-L3 disc space. This could conceivably be the cause of the patient's pain. Exact cause is uncertain. It may relate to an early finding of retroperitoneal fibrosis. Infectious-inflammatory change could also have this appearance. It could be reactive and related to disc disease. Consider lumbar spine MRI with and without IV contrast for further characterization No stones or hydronephrosis. D/ / Sky Carter MD / Sky Carter MD Interpreting Provider: Sky Carter MD Lumbar Spine MRI 02/04/19 09:20 IMPRESSION: Abnormal enhancement of the anterior longitudinal ligament, most pronounced at the L3 vertebral body level. Additional anterior perivertebral edema/enhancement is noted. These findings may sub ligamentous spread of an atypical spine infection, such as tuberculosis spondylitis. There is no imaging finding to suggest discitis or osteomyelitis at this time. No evidence of an abscess. RECOMMENDATIONS: Consider short interval follow-up imaging. D/ / Farooq Castorena MD / Farooq Castorena MD Interpreting Provider: Farooq Castorena MD Chest X-Ray 02/04/19 22:48 IMPRESSION: No acute disease. D/ / Maribel Hodge Cha, MD / Maribel Hodge Cha, MD Interpreting Provider: Maribel Hodge Cha, MD Consult Discharge Plan - Plan Referrals: Jarret Whitehead MD [Primary Care Provider] - (1) Low back pain Qualifiers: Chronicity: acute Back pain laterality: midline Sciatica presence: without sciatica Qualified Code(s): M54.5 - Low back pain (3) Hypothyroidism Qualifiers: Hypothyroidism type: unspecified Qualified Code(s): E03.9 - Hypothyroidism, unspecified (4) Depression Qualifiers: Depression Type: unspecified Qualified Code(s): F32.9 - Major depressive dis order, single episode, unspecified (5) GERD (gastroesophageal reflux disease) Qualifiers: Esophagitis presence: without esophagitis Qualified Code(s): K21.9 - Gastro- esophageal reflux disease without esophagitis (6) HLD (hyperlipidemia) Qualifiers: Hyperlipidemia type: unspecified Qualified Code(s): E78.5 - Hyperlipidemia, unspecified
[2019-02-05] MEDS: Sennosides/Docusate Sodium TABLET PO SCH (21:49)
[2019-02-05] MEDS: ALPRAZolam 1 MG TABLET PO PRN (21:55)
[2019-02-05] MEDS: Ondansetron 4 MG/2 ML VIAL IVP PRN (22:14)
[2019-02-06] MEDS: *HR* HYDROcodone/Acet 5/325 mg TABLET PO PRN ×3 (01:41→19:51)
[2019-02-06] MEDS: *HR* HYDROmorphone (PF) 1 MG/ML SYRINGE IVP PRN (04:50)
[2019-02-06] MEDS: *HR* Heparin 5,000 UNIT/ML VIAL SQ SCH ×3 (05:55→23:21)
[2019-02-06] MEDS: Levothyroxine 25 MCG TABLET PO SCH (05:55)
[2019-02-06] MEDS: Budesonide/Formoterol 80/4.5 MDI IH SCH ×2 (07:31→21:50)
[2019-02-06] MEDS: BuPROPion XL (24 HR) 150 MG TABLET PO SCH (08:07)
[2019-02-06] MEDS: Ondansetron 4 MG/2 ML VIAL IVP PRN (09:11)
[2019-02-06] MEDS ORDERED: Fluticasone Propionate Nasal 50 MCG/SPRAY BOTTLE NS PRN (09:31)
--- NOTE | 2019-02-06 09:36 | Internal Med Progress Note ---
Hospitalist Progress Note - Encounter Date of Encounter: 02/06/19 Time of Encounter: 09:34 - Subjective Interval History: Patient was seen and examined. Complains of nausea. Remains hemodynamically stable. Afebrile. Continues to complain of low back pain. - Exam Vitals: Temp Pulse Resp BP Pulse Ox 98.8 F 68 16 109/66 93 02/06/19 06:26 02/06/19 06:26 02/06/19 07:31 02/06/19 06:26 02/06/19 07:31 Exam: GEN: NAD CVS:RRR. S1, S2, No m/r/g RESP: CTAB ABD: Soft, NT, ND, +BS EXT: No edema, No rashes, 2+ DP. Lower back tenderness with no deformities. NEURO: Nonfocal, CN II-XII intact, d - Assessment and Plan (1) Low back pain Current Visit: Yes Status: Acute Assessment and Plan: c/w pain control. I am not convinced this is infectious but possible. Has not been seen by Dr. Steel yet. Seen by infectious disease. Possible discitis. There was a mention of possible atypical spine infection such as tuberculosis sp ondylitis. No risk factors for TB. ID has sent for quantiferon, histoplasmosis, aspergillus, fungitell. IV vancomycin/zosyn have been stopped by ID. f/u on blood cultures. CRP normal. ESR mildly elevated at 22. (2) Abnormal MRI Current Visit: Yes Status: Acute Assessment and Plan: As above (3) Hypothyroidism Current Visit: Yes Status: Chronic Assessment and Plan: c/w home meds (4) Depression Current Visit: Yes Status: Chronic Assessment and Plan: c/w home meds (5) GERD (gastroesophageal reflux disease) Current Visit: Yes Status: Chronic Assessment and Plan: c/w home PPI (6) HLD (hyperlipidemia) Current Visit: Yes Status: Chronic Assessment and Plan: c/w home Lipitor (7) DVT prophylaxis Current Visit: Yes Status: Acute Assessment and Plan: heparin SQ - Time Spent with Patient Total time spent is greater than 50% in coordination of care (as documented) at patient's floor/unit and/or counseling patient: Internal Medicine: Result - Labs CBC & Chem 7: 02/05/19 08:08 02/05/19 08:08 Consult Discharge Plan - Plan Referrals: Okolie,Wheat, MD [Primary Care Provider] - (1) Low back pain Qualifiers: Qualified Code(s): M54.5 - Low back pain (3) Hypothyroidism Qualifiers: Qualified Code(s): E03.9 - Hypothyroidism, unspecified (4) Depression Qualifiers: Qualified Code(s): F32.9 - Major depressive disorder, single episode, unspecified (5) GERD (gastroesophageal reflux disease) Qualifiers: Qualified Code(s): K21.9 - Gastro-esophageal reflux disease without esophagitis (6) HLD (hyperlipidemia) Qualifiers: Qualified Code(s): E78.5 - Hyperlipidemia, unspecified
--- NOTE | 2019-02-06 11:19 | Infectious Disease Progress No ---
ID Progress Note Date of Encounter: 02/06/19 Time of Encounter: 11:16 - Subjective Subjective: Patient seen and examined. No acute events noted overnight. Patient states her back pain is about the same today. Denies fevers, chills, or rigors. Denies chest pain, shortness of breath, or cough. Reports some nausea and dry mouth, but denies vomiting or diarrhea. Denies abdominal pain or urinary complaints. States appetite is poor due to the nausea. Denies oral thrush or skin rashes. Pending ortho-spine evaluation. - Objective CBC & Chem 7: 02/05/19 08:08 02/05/19 08:08 - Exam Vitals: Temp Pulse Resp BP Pulse Ox 99.1 F 60 14 110/69 96 02/06/19 10:55 02/06/19 10:55 02/06/19 10:55 02/06/19 10:55 02/06/19 10:55 Exam: Head: Atraumatic, normal inspection, normocephalic. Eye: EOMI, PERRLA, no scleral icterus noted. ENT: Mucous membranes moist. No odontogenic infection noted. Neck: Normal inspection, no meningismus. Respiratory: Clear to auscultation. No rales, respiratory distress, rhonchi, or wheezes noted. Cardiovascular: Regular rate and rhythm, S1 and S2 audible. No murmurs, rubs, or gallops. GI: Soft, nondistended, normal bowel sounds. Extremities:No joint swelling, pedal edema, or tenderness noted. Back: Normal inspection. Vertebral tenderness notd in the lower spine. Paravetebral tendernes noted with palpation of the lower back. Negative SLR bilaterally. Neurological: Alert, oriented 3, no focal deficits. Strength 5/5 in all extremities. Psychiatric: normal affect, normal mood. Skin: Dry, intact, warm. Normal color. No rashes. - Assessment and Plan (1) Abnormal MRI Status: Acute MRI of the lumbar spine showed abnormal enhancement of the anterior longitudinal ligament, most pronounced at the L3 vertebral body. Additional anterior perivertebral edema/enhancement is noted. Per radiology, these findings may represent ligamentous spread of an atypical spine infection, such as tuberculosis spondylitis. There was no imaging finding to suggest discitis or osteomyelitis and no evidence of abscess. Etiology of the patient's abnormality on the MRI unclear. The patient has no sepsis criteria. ESR minimally elevated with a normal CRP. Histo, Aspergillus, and Fungitell serologies are pending. Orthospine consulted. Await recommendations. Not currently on any antibiotics. SNOMED Code(s): 128788537 (2) Low back pain Status: Acute Etiology: Unclear. Await recommendations from orthospine. Pain management per the primary team. Qualifiers: Chronicity: acute Back pain laterality: midline Sciatica presence: without sciatica Qualified Code(s): M54.5 - Low back pain SNOMED Code(s): 608151087 (3) Hypothyroidism Status: Chronic Qualifiers: Hypothyroidism type: unspecified Qualified Code(s): E03.9 - Hypothyroidism, unspecified SNOMED Code(s): 87842448 (4) Depression Status: Chronic Qualifiers: Depression Type: unspecified Qualified Code(s): F32.9 - Major depressive disorder, single episode, unspecified SNOMED Code(s): 68671748 (5) GERD (gastroesophageal reflux disease) Status: Chronic Qualifiers: Esophagitis presence: without esophagitis Qualified Code(s): K21.9 - Gastro-esophageal reflux disease without esophagitis SNOMED Code(s): 185129557 (6) HLD (hyperlipidemia) Status: Chronic Qualifiers: Hyperlipidemia type: unspecified Qualified Code(s): E78.5 - Hyperlipidemia, unspecified SNOMED Code(s): 95723864 (7) Nausea Status: Acute Likely secondary to pain medication regimen. Management per the primary team. SNOMED Code(s): 170222725 - Recommendations Recommendations: Check Quantiferon. --> pending. Check histoplasmosis antigen. --> pending. Check Aspergillus galactomannan. --> pending. Check fungitell. --> pending. Await recommendations from the ortho-spine team. Recommend biopsy of the site of abnormality noted on MRI/CT scan. Send for pathology and culture (aerobic, anaerobic, AFB, and Fungal). Pain management per the primary team. Continue to observe off antibiotics. No further recommendations from the ID team. We will sign off. Please re-consult if biopsy shows infectious etiology of the patient's symptoms. Consult Discharge Plan - Plan Additional Instructions: Follow-up appointments: If there is not an appointment listed below, please call your physician and schedule a follow-up appointment. If you have congestive heart failure and your symptoms return, make an appointment with your physician. Medication List: Carry an up to date list of medications you are taking at all time. We have given you an updated medication list including any new medications that you have been prescribed. Please provide that list to your primary provider Symptoms: If your condition changes or you experience any of the following symptoms, notify your physician immediately: Unusual or worsening pain, fever, persistent nausea and vomiting, bleeding, increase in swelling (especially in your legs), sudden weight gain, extreme dizziness, chest pain, increased drainage or redness from a wound or incision. Go to the emergency department if you experience a problem with breathing. Weights: If you have a history of swelling or shortness of breath, weigh yourself daily and notify your physician if you have a weight gain of two or more pounds in one day or 5 or more pounds in a week. If you experience any of the warning signs for stroke: Sudden numbness or weakness of the face, arm or leg; especially on one side of the body, sudden confusion, trouble speaking or understanding, sudden trouble seeing in one or both eyes, sudden trouble walking, dizziness, loss of balance or coordination, sudden sever headache with no cause; Call 911 or go to the emergency room. Stroke is a medical emergency. Some risk factors for stroke: Age, cigarette smoking, diabetes, excessive alcohol consumption, family history, high blood pressure, overweight, physical inactivity, prior stroke, heart attack, diagnosis of carotid artery stenosis or other artery disease. If you smoke, STOP: Smoking or tobacco use significantly increases your risk of heart and lung disease. Your chance of disease greatly increases if you continue to smoke. For more information, call the [place] tobacco quit line for smoking cessation 5-609-AMRG-NOW ( ) Referrals: Milo Tavera DO [Partnered Physician] - 02/13/19 10:00 am Jarret Whitehead MD [Primary Care Provider] - Prescriptions: HYDROcodone/Acet 5/325 mg [[place] 5-325 mg] 1 tab PO Q6HR PRN 4 Days #16 tablet PRN Reason: Moderate Pain - Attending Attestation I have personally performed a face to face evaluation on this patient. I have reviewed and agree with the care plan. History and Exam by me shows: Assessment and plan: Back pain with abnormal lumbar MRI for atypical infection pots disease? Discussed at length with the patient in the presence of nursing staff. I spent to her that if this is an atypical infection I recommended she gets transferred to [facility] because we have lots of limitations here and I am uncomfortable dealing with that kind of infection. She asked me if hardware in her sugars what I would do evidence of transfer. Also I spoke with Dr. Steel and expected to have him that this is my recommendation.
[2019-02-06] MEDS: Cholecalciferol (D-3) 1,000 UNIT (25MCG) TABLET PO SCH (12:04)
[2019-02-06] MEDS: Vitamin B Complex/Vit C/Vit E 1 EACH TABLET PO SCH (12:04)
[2019-02-06] MEDS: Diltiazem CD (24hr) 180 MG CAPSULE PO SCH (12:25)
[2019-02-06] MEDS ORDERED: Aminoglycoside Consult 1 EACH MC ONE (13:23)
[2019-02-06] MEDS: ALPRAZolam 1 MG TABLET PO PRN ×2 (15:02→23:32)
[2019-02-06] MEDS: Sennosides/Docusate Sodium TABLET PO SCH (19:51)
[2019-02-06] MEDS ORDERED: Sennosides/Docusate Sodium TABLET PO SCH (21:00)
[2019-02-06] MEDS: Budesonide/Formoterol 160/4.5 1 PUFF INH IH SCH (21:43)
[2019-02-07] MEDS: *HR* Heparin 5,000 UNIT/ML VIAL SQ SCH (05:41)
[2019-02-07] MEDS: Levothyroxine 25 MCG TABLET PO SCH (05:41)
[2019-02-07] MEDS: *HR* HYDROcodone/Acet 5/325 mg TABLET PO PRN (05:41)
[2019-02-07] MEDS: Budesonide/Formoterol 80/4.5 MDI IH SCH (08:28)
[2019-02-07] MEDS: Budesonide/Formoterol 160/4.5 1 PUFF INH IH SCH (08:29)
--- NOTE | 2019-02-07 09:12 | Discharge Summary ---
- NOTES TO OUTPATIENT PROVIDER Notes to Outpatient Provider: mikayla had an abonrmal MRI lumbar for back pain. Unknonw etiology to both orhto spine and ID. She has no signs of infection. She was sent work up for atypical infection. Ortho spine offered her a transfer to [facility] to be looked at by ID there and possibly rheumatology and possibly a biopsy, patient asked if she could go home instead and follow up outpatient. She was discharged home and has an appointment on 02/11/19 with her PCP (per patient) to arrange for follow ups at [facility] Orders not resulted at time of discharge: Pending orders 02/04/19 16:55 Culture,Blood [BC] Stat 02/05/19 16:31 Aspergillus galactomannan Ag Routine Fungitell (1,3)-qsyw-O-Nfvhpo Routine Histoplasma Antigen Routine QuantiFERON-TB Gold In-Tube Routine Date of Encounter: 02/07/19 Time of Encounter: 09:10 - Discharge Diagnosis (1) Low back pain Priority: Primary Status: Acute Qualifiers: Chronicity: acute Back pain laterality: midline Sciatica presence: without sciatica Qualified Code(s): M54.5 - Low back pain (2) Abnormal MRI Priority: Primary Status: Acute (3) Hypothyroidism Priority: Secondary Status: Chronic Qualifiers: Hypothyroidism type: unspecified Qualified Code(s): E03.9 - Hypothyroidism, unspecified (4) Depression Priority: Secondary Status: Chronic Qualifiers: Depression Type: unspecified Qualified Code(s): F32.9 - Major depressive disorder, single episode, unspecified (5) GERD (gastroesophageal reflux disease) Priority: Secondary Status: Chronic Qualifiers: Esophagitis presence: without esophagitis Qualified Code(s): K21.9 - Gastro-esophageal reflux disease without esophagitis (6) HLD (hyperlipidemia) Priority: Secondary Status: Chronic Qualifiers: Hyperlipidemia type: unspecified Qualified Code(s): E78.5 - Hyperlipidemia, unspecified Hospital course: Ms. Forbes is a 63 year old female with history of hypothyroidism, GERD, depression, arthritis who presented with low back pain that has worsened for the last 4-5 days and hias prevented her from proper sleep. She said it is worse when she bends forward. She has had chronic back pain for many years which has limited her ability she walks with a limp. She also has had bilateral hip pain for many years. She denies any numbness or tingling. No urinary or bowel incontinence. When she came to the ED she had a laboratory workup that was mostly unremarkable. Was noted to have glucose of 130. She had a CT of the ab domen and pelvis that showed an abnormal ejection anterior to the L2 vertebral body extending to the L2-L3 disc space. An MRI was recommended which was done and showed similar findings. There is edema/enhancement noted. There was a mention of possible atypical spine infection, such as tuberculosis spondylitis. Dr. Steel was contacted and recommended admission and consult ID as well. She has not had any recent sickness or travel. No risk factors for TB. Patient denied any fever, chills, recent travel, headache, nausea, vomiting, chest pain, shortness breath, abdominal pain, diarrhea, constipation, urinary symptoms, or neurological symptoms. patient was seen by ID and we had her on both vancomycin/zosyn for a couple of days and then we stopped them as she showed no signs of infection. She was seen by Dr. Steel from Ortho spine and he offered her a transfer to [facility] for possible biopsy and to be seen by ID there for possible atypical infection and to be seen possibly by rheumatology as he though some of her pain in the hips is due to SI joint. He did recommend pain management through a specialist as well and possible need for injections of SI joint. Patient was offered all of this and she preferred to go home and have this done through referrals with her PCP. She mentioned how she is very anxious and gets so depressed being away from her and being at [facility] would cause her that. I called Dr. Steel and again discussed the patient's preferences with him and to see if there was a need for an urgent transfer to [facility]. He was not opposed to having the patient get di scharged but he mentioned that the patient would benefit from having her work up expedited if she get transferred vs trying to do this outpatient. I again told the patient Dr. Steel's thought process and she still wanted to be at home instead and try to do this outpatient. She had some work up sent by ID here for atypical infections which are still pending. She was discharged 02/07/19. - Time Spent with Patient Total time spent providing and/or coordinating discharge services: Time spent: Greater than 30 minutes - Discharge Medications Prescriptions: No Action Atorvastatin Calcium [Lipitor] 20 mg PO DAILY Alprazolam [Xanax] 2 mg PO BID PRN PRN Reason: Anxiety Bupropion HCl [Wellbutrin Xl] 300 mg PO DAILY Budesonide/Formoterol 160/4.5 [Symbicort 160/4.5] 2 puff IH BID Levothyroxine Sodium 25 mcg PO QAM Raloxifene [Evista] 60 mg PO DAILY Omeprazole [PriLOSEC] 40 mg PO DAILY Montelukast [Singulair] 10 mg PO QPM Furosemide [Lasix] 20 mg PO DAILY PRN PRN Reason: Swelling Diltiazem HCl [Cardizem LA] 180 mg PO DAILY Cyclobenzaprine [Flexeril] 10 mg PO BID PRN PRN Reason: Muscle Spasm Fluticasone Propionate Nasal [Flonase] 50 mcg NS DAILY PRN PRN Reason: Allergy Symptoms Sertraline [Zoloft] 250 mg PO DAILY Amitriptyline [Elavil] 25 mg PO HS Aspirin [Lo-Dose Aspirin EC] 81 mg PO DAILY Cholecalciferol (Vitamin D3) [Dialyvite Vitamin D] 5,000 unit PO DAILY Polyethylene Glycol 3350 [MiraLAX] 17 gm PO QAM Sennosides/Docusate Sodium [Senna-S Tablet] 1 each PO HS Vitamin B Complex [Balanced B-50] 1 each PO DAILY Home Medications: Alprazolam [Xanax] 2 mg PO BID PRN 02/04/19 [History] Amitriptyline [Elavil] 25 mg PO HS 02/04/19 [History] Aspirin [Lo-Dose Aspirin EC] 81 mg PO DAILY 02/04/19 [History] Atorvastatin Calcium [Lipitor] 20 mg PO DAILY 02/04/19 [History] Budesonide/Formoterol 160/4.5 [Symbicort 160/4.5] 2 puff IH BID 02/04/19 [History] Bupropion HCl [Wellbutrin Xl] 300 mg PO DAILY 02/04/19 [History] Cholecalciferol (Vitamin D3) [Dialyvite Vitamin D] 5,000 unit PO DAILY 02/04/19 [History] Cyclobenzaprine [Flexeril] 10 mg PO BID PRN 02/04/19 [History] Diltiazem HCl [Cardizem LA] 180 mg PO DAILY 02/04/19 [History] Fluticasone Propionate Nasal [Flonase] 50 mcg NS DAILY PRN 02/04/19 [History] Furosemide [Lasix] 20 mg PO DAILY PRN 02/04/19 [History] Levothyroxine Sodium 25 mcg PO QAM 02/04/19 [History] Montelukast [Singulair] 10 mg PO QPM 02/04/19 [History] Omeprazole [PriLOSEC] 40 mg PO DAILY 02/04/19 [History] Polyethylene Glycol 3350 [MiraLAX] 17 gm PO QAM 02/04/19 [History] Raloxifene [Evista] 60 mg PO DAILY 02/04/19 [History] Sennosides/Docusate Sodium [Senna-S Tablet] 1 each PO HS 02/04/19 [History] Sertraline [Zoloft] 250 mg PO DAILY 02/04/19 [History] Vitamin B Complex [Balanced B-50] 1 each PO DAILY 02/04/19 [History] HYDROcodone/Acet 5/325 mg [[place] 5-325 mg] 1 tab PO Q6HR PRN 4 Days #16 tablet 02/07/19 [Rx] Allergies/Adverse Reactions: Allergy/AdvReac Type Severity Reaction Status Date / Time acetaminophen Allergy See Verified 02/04/19 08:58 [From Tylenol-Codeine] Comments codeine Allergy See Verified 02/04/19 08:58 [From Tylenol-Codeine] Comments Cortisone Allergy See Verified 02/04/19 08:58 Comments NSAIDS (Non-Steroidal Allergy See Verified 02/04/19 08:58 Anti-Inflamma Comments olanzapine [From Zyprexa] Allergy See Verified 02/04/19 08:58 Comments prednisone Allergy See Verified 02/04/19 08:58 Comments Sulfa (Sulfonamide Allergy See Verified 02/04/19 08:58 Antibiotics) Comments tetracycline [Tetracycline] Allergy See Verified 02/04/19 08:58 Comments Zolpidem [From Ambien] AdvReac See Verified 02/04/19 08:58 Comments Date of admission: 02/04/19 23:25 Primary care physician: Jarret Whitehead MD Consults: 02/04/19 16:28 Consult to Occupational Therapy [CONS] Routine Comment: Evaluate, develop and implement POC Reason for Consult: therapy/placement needs Does patient have active BEDREST order?: No Is patient medically & hemodynamically stable?: Yes Consult to Physical Therapy [CONS] Routine Comment: Evaluate, develop and implement POC Reason for Consult: PT eval Does patient have active BEDREST order?: No Is patient medically & hemodynamically stable?: Yes 02/04/19 16:34 Consult to Infectious Diseases [CONS] Stat Consulting Provider: Infectious Disease [place] Reason for Consult: discitis. rule out tuberculous spondylitis Call Completed: No Consult to Orthopedic Surgery [CONS] Stat Consulting Provider: Jose Luis Steel Jr Reason for Consult: Back pain. Abnormal MRI Call Completed: Yes 02/06/19 11:03 Consult to Radio Performer [CONS] Routine Reason for SW Consult: DC planning - Constitutional Vitals: Temp Pulse Resp BP Pulse Ox 99.0 F 74 16 121/71 92 02/07/19 07:19 02/07/19 07:19 02/07/19 08:30 02/07/19 07:19 02/07/19 08:30 Exam: GEN: NAD CVS:RRR. S1, S2, No m/r/g RESP: CTAB ABD: Soft, NT, ND, +BS EXT: No edema, No rashes, 2+ DP. Lower back tenderness with no deformities. NEURO: Nonfocal, CN II-XII intact, - Patient Status Disposition: Home, Self-Care Condition: Fair Overall status at discharge: patient is progressing back to baseline - Discharge Instructions Follow Up With: Jarret Whitehead MD [Primary Care Provider] - Forms: ED Satisfaction Letter - Diet and Activity Activity: increase activity as tolerated Diet: regular diet
[2019-02-07] MEDS: Diltiazem CD (24hr) 180 MG CAPSULE PO SCH (09:30)
[2019-02-07] MEDS: Cholecalciferol (D-3) 1,000 UNIT (25MCG) TABLET PO SCH (09:30)
[2019-02-07] MEDS: Vitamin B Complex/Vit C/Vit E 1 EACH TABLET PO SCH (09:30)
[2019-02-07] MEDS: BuPROPion XL (24 HR) 150 MG TABLET PO SCH (09:32)
--- NOTE | 2019-02-07 10:07 | Spine Progress Note ---
Date of Encounter: 02/06/19 Time of Encounter: 17:15 - Assessment and Plan (1) Sacroiliac joint dysfunction Current Visit: Yes Status: Acute On exam afebrile vital signs stable. She is lying in bed in mild distress secondary to back pain. She is grossly neurovascularly intact with regard to her bilateral lower upper and lower extremities. Her hips move symmetrically. She has no clonus. She has tenderness to palpation over the right side sacral iliac joint which is exquisite. She has some pain over the left SI joint as well but to a much lesser degree. She has a positive Isaiah's test. She has a negative straight leg raise. She has no clubbing cyanosis or edema. MRI of the lumbar spine reveals mild multilevel degenerative changes. There is no significant stenosis or evidence of discitis or osteomyelitis. There is some enhancement anterior to the anterior longitudinal ligament at the L3 level anteriorly. This could be postsurgical changes or an inflammatory process or atypical infection. No definitive diagnosis can be made at based upon MRI with regard to this entity. Impression: 1) sacroiliac joint dysfunction 2) enhancement anterior longitudinal ligament possible inflammatory change versus atypical infection Plan : Refer to pain management for consideration of diagnostic block and/or treatments for sacral iliac joint pain. This may include injections in the sacroiliac joint or radiofrequency ablation or other interventional treatments. Her workup with regard to the atypical MRI findings anterior to the mid lumbar spine may be done on an outpatient basis. I have talked with Dr. MORALES OF infectious disease and consideration for infectious disease consultation at a tertiary Medical Center may be warranted. Outpatient workup may include CT- guided biopsy of the region. Subjective Principal diagnosis: Back pain, sacroiliac dysfunction Interval history: Ms. Forbes is a 63-year-old woman who has had long-standing intermittent back pain issues. She has had evaluation by a spine surgeon in [place] as well as rheumatology in [place] on an outpatient basis where she was diagnosed with fibromyalgia. She has a history of multiple abdominal surgeries. During this current episode, she had excruciating low back pain for approximately 1 week which prompted evaluation by the emergency department. MRI evaluation at that time showed no discitis, osteomyelitis, or significant stenosis however there was some enhancement of the anterior longitudinal ligament with concern for atypical infectious process such as tuberculosis. The patient was admitted for evaluation and further management. We are asked to see with suggestion for tr eatment of back pain. She denies any fevers or chills or motor deficits. Objective Vital signs: Vital Signs Temp Pulse Resp BP Pulse Ox 02/07/19 08:30 16 92 02/07/19 07:19 99.0 F 74 15 121/71 96 02/07/19 04:48 99.1 F 69 15 129/78 92 02/06/19 22:17 99.1 F 66 17 117/70 96 02/06/19 21:43 18 92 02/06/19 19:27 98.9 F 70 16 117/70 92 02/06/19 16:31 99.0 F 68 16 127/73 94 02/06/19 10:55 99.1 F 60 14 110/69 96 Intake and Output 02/06/19 02/07/19 02/07/19 23:59 07:59 15:59 Other: # Voids 3 Weight 93.5 kg Patient Weight 02/07/19 23:59 Weight 93.5 kg - Labs CBC & BMP: 02/05/19 08:08 02/05/19 08:08 Labs: Abnormal lab results ESR 22 mm/hr (0-15) H 02/04/19 16:55 Carbon Dioxide 31 mEq/L (23-29) H 02/05/19 08:08 Est GFR (Non-Af Amer) 51 (> 60) L 02/05/19 08:08 Glucose 130 mg/dL (70-105) H 02/04/19 07:40 Total Bilirubin 0.2 mg/dL (0.3-1.0) L 02/04/19 07:40 Ur Specific [place] 1.008 (1.010-1.025) L 02/04/19 07:47 Ur Leukocyte Esterase Large (Negative) H 02/04/19 07:47 Urine Microscopic WBC 15-30 per hpf (0-3) H 02/04/19 07:47 Ur Squamous Epith Cells Many per lpf (None-Few) H 02/04/19 07:47 Ur Culture Indicated? YES (NO) A 02/04/19 07:47 Consult Discharge Plan - Plan Referrals: Jarret Whitehead MD [Primary Care Provider] - Prescriptions: HYDROcodone/Acet 5/325 mg [Bronson 5-325 mg] 1 tab PO Q6HR PRN 4 Days #16 tablet PRN Reason: Moderate Pain
[2019-02-07 11:41] VITALS: BP 142/80
[2019-02-08 04:00] LABS: A.galactomannan Ag Index 0.03
[2019-02-08 07:48] LABS: QuantiFERON NIL 0.03 IU/mL; QuantiFERON-TB Gold In-Tube NEGATIVE
== END 2019-02-07 13:24 | disposition home or self-care (01) | DRG 552 ==
LOC: 3NENU 06:42 → EMEROOARM 06:42 → 3NENU 21:42 → SUATTDRO 23:25
PROVIDERS: ADMIT Internal Medicine; ATTEND Internal Medicine